=== PATIENT | male | born 1970 | race Caucasian/White ===

== ENCOUNTER → 2018-02-11 | Outpatient (CLI) | payer BC | LOC: COL.RAD 14:00 | DX: C30.0 Malignant neoplasm of nasal cavity (principal) | CPT/HCPCS: Q9967 ==

== ENCOUNTER → 2018-02-12 | Outpatient (CLI) | payer BC | LOC: COL.VAS 12:30 | DX: Z51.11 Encounter for antineoplastic chemotherapy (principal); C41.9 Malignant neoplasm of bone and articular cartilage, unspecified ==

== ENCOUNTER → 2018-04-22 | Outpatient (CLI) | payer BC | LOC: COL.VAS 13:30 | DX: Z51.11 Encounter for antineoplastic chemotherapy (principal); C41.9 Malignant neoplasm of bone and articular cartilage, unspecified ==

== ENCOUNTER 2018-05-03 15:29 | Outpatient (RCR) | payer BC ==
[2018-05-03] VITALS (9 sets, daily range): BP systolic 116–123; BP diastolic 66–84; PULSE 70–96; TEMP 97.7–98.4
[~2018-05-03] VITALS: Ht 172.7 cm; Wt 71.5 kg
[2018-05-03] MEDS ORDERED: MULTI VITAMINS1 TAB PO (19:26)
[2018-05-03] MEDS ORDERED: NEURONTIN300 MG/CAP PO (19:26)
== END 2018-05-03 20:50 | disposition home or self-care (01) ==
LOC: EUO 15:29
DX: C41.0 Malignant neoplasm of bones of skull and face (principal)
CPT/HCPCS: J1644; J7050; P9016

== ENCOUNTER 2018-05-14 16:54 | Outpatient (RCR) | payer BC ==
[~2018-05-14] VITALS: Ht 172.7 cm; Wt 68.5 kg
[2018-05-14] VITALS (10 sets, daily range): BP systolic 108–133; BP diastolic 52–85; PULSE 60–78; TEMP 98.3–99.3
[~2018-05-14 16:54] MED LIST: MULTI VITAMINS1 TAB PO; NEURONTIN300 MG/CAP PO
--- NOTE | 2018-05-14 23:57 | NUR ---
Transfusion finished, and IV line flushed. Patient VS stable and no complaints reported. Patient left facility independently.
== END 2018-05-15 | disposition home or self-care (01) ==
LOC: EUO 16:54
DX: C41.0 Malignant neoplasm of bones of skull and face (principal)
CPT/HCPCS: J7050; P9040

== ENCOUNTER 2018-05-17 23:16 | Emergency (ER) | payer BC ==
[~2018-05-17] VITALS: Ht 172.7 cm; Wt 68.2 kg
[2018-05-17] MEDS ORDERED: COMPAZINE 110 MG/TAB PO (23:30)
[2018-05-17 23:42] LABS: MEAN CELL VOLUME 84 fl (80.0-100.0); MEAN CORPUSCULAR HGB CONC 36 g/dl (33.0-37.0); RED BLOOD COUNT 2.82 M/mm3 (4.20-5.60)
[2018-05-18] VITALS (8 sets, daily range): BP systolic 115–122; BP diastolic 76–86; PULSE 65–94; TEMP 96.7–97.2
[2018-05-18 00:09] LABS: HEMATOCRIT 23.7 % (42.0-52.0); HEMOGLOBIN 8.6 g/dl (13.5-18.0); MEAN CORPUSCULAR HEMOGLOBIN 30 pg (27.0-31.0)
[2018-05-18 00:10] LABS: PLATELET COUNT 2 K/mm3 (130-400)
[2018-05-18 00:23] LABS: BAND 14 % (0-10); BASOPHIL 1 % (0-2); LYMPHOCYTE 66 % (20.0-51.0); METAMYELOCYTE 2 % (0-0); NEUTROPHILS 12 % (42.0-75.2); PLATELET ESTIMATE DECREASED (NORMAL); SCHISTOCYTES 2+; TEAR DROP CELLS 2+
[2018-05-18 05:14] LABS: MEAN CELL VOLUME 85 fl (80.0-100.0); MEAN CORPUSCULAR HGB CONC 36 g/dl (33.0-37.0); MEAN PLATELET VOLUME 10.5 fl (7.4-10.4)
[2018-05-18 05:24] LABS: HEMATOCRIT 21.2 % (42.0-52.0); HEMOGLOBIN 7.7 g/dl (13.5-18.0); MEAN CORPUSCULAR HEMOGLOBIN 31 pg (27.0-31.0)
[2018-05-18 05:25] LABS: PLATELET COUNT 37 K/mm3 (130-400)
[2018-05-18 06:11] LABS: BAND 6 % (0-10); EOSINOPHIL 1 % (0-4); LYMPHOCYTE 43 % (20.0-51.0); NEUTROPHILS 43 % (42.0-75.2); PLATELET ESTIMATE DECREASED (NORMAL)
[2018-05-18 06:12] LABS: ANISOCYTOSIS 2+; HYPOCHROMIA 1+; POIKILOCYTOSIS 1+; TEAR DROP CELLS 1+
[2018-05-18 06:25] LABS: INR 1.1 (0.8-3.0); PROTHROMBIN TIME 12.7 SECONDS (9.7-12.8)
[2018-05-18 06:28] LABS: ALBUMIN 4.4 gm/dL (3.5-5.0); BILIRUBIN,TOTAL 0.6 mg/dL (0.0-1.0); CALCIUM 10.1 mg/dL (8.4-10.2); CREATININE, serum 0.8 mg/dL (0.66-1.25); PARTIAL THROMBOPLASTIN TIME 35.6 SECONDS (26.0-37.0); POTASSIUM 4.4 mmol/L (3.4-5.0); TOTAL PROTEIN 7.2 gm/dL (6.4-8.2)
[2018-05-18 10:16] LABS: PATHOLOGY DIFF REVIEW OK +
[2018-05-18 12:37] LABS: MEAN CELL VOLUME 85 fl (80.0-100.0); MEAN CORPUSCULAR HGB CONC 36 g/dl (33.0-37.0); MEAN PLATELET VOLUME 10.5 fl (7.4-10.4); RED BLOOD COUNT 2.81 M/mm3 (4.20-5.60); REDCELL DISTRIBUTION WIDTH-CV 14.9 % (11.5-14.5)
[2018-05-18 12:41] LABS: HEMATOCRIT 23.9 % (42.0-52.0); HEMOGLOBIN 8.7 g/dl (13.5-18.0); MEAN CORPUSCULAR HEMOGLOBIN 31 pg (27.0-31.0)
[2018-05-18 12:43] LABS: PLATELET COUNT 45 K/mm3 (130-400)
[2018-05-18 13:04] LABS: BAND 28 % (0-10); EOSINOPHIL 1 % (0-4); LYMPHOCYTE 37 % (20.0-51.0); NEUTROPHILS 29 % (42.0-75.2); PLATELET ESTIMATE DECREASED (NORMAL)
== END 2018-05-18 12:45 | disposition short-term general hospital (02) ==
LOC: COL.ER 23:16
PROVIDERS: Emergency Medicine
DX: R04.0 Epistaxis (principal); D69.6 Thrombocytopenia, unspecified; D64.9 Anemia, unspecified; C41.9 Malignant neoplasm of bone and articular cartilage, unspecified
CPT/HCPCS: P9037

== ENCOUNTER 2018-05-22 12:58 | Emergency (ER) | payer BC ==
[~2018-05-22] VITALS: Ht 172.7 cm; Wt 65.9 kg
[~2018-05-22 12:58] MED LIST changes: +COMPAZINE 110 MG/TAB PO
[2018-05-22 13:15] VITALS: BP 108/68; TEMP 97.7
[2018-05-22 15:29] VITALS: PULSE 87
== END 2018-05-22 15:38 | disposition home or self-care (01) ==
LOC: COL.ER 12:58
DX: S02.82XA Fracture of other specified skull and facial bones, left side, initial encounter for closed fracture (principal); S01.112A Laceration without foreign body of left eyelid and periocular area, initial encounter; Z23 Encounter for immunization; W22.8XXA Striking against or struck by other objects, initial encounter; Y93.64 Activity, baseball

== ENCOUNTER 2018-06-02 13:00 | Outpatient (RCR) | payer BC ==
[2018-06-02] VITALS (10 sets, daily range): BP systolic 12–124; BP diastolic 66–83; PULSE 60–77; TEMP 98.2–98.8
[~2018-06-02] VITALS: Ht 172.7 cm; Wt 68.1 kg
== END 2018-06-02 17:37 | disposition home or self-care (01) ==
LOC: EUO 13:00
DX: C41.0 Malignant neoplasm of bones of skull and face (principal)
CPT/HCPCS: J1644; J7050; P9040

== ENCOUNTER 2018-06-09 13:00 | Outpatient (RCR) | payer BC ==
[~2018-06-09] VITALS: Ht 172.7 cm; Wt 64.5 kg
[2018-06-09] VITALS (12 sets, daily range): BP systolic 112–130; BP diastolic 73–93; PULSE 55–78; TEMP 97.9–98.2
--- NOTE | 2018-06-09 14:05 | NUR ---
1st unit PRBC's started at 60 ml/hr. VSS.
--- NOTE | 2018-06-09 15:37 | NUR ---
1st unir Irr. PRBC's complete. VSS.
--- NOTE | 2018-06-09 15:38 | NUR ---
2nd unit Irr. PRBC;s started at 60 ml/hr. VSS.
--- NOTE | 2018-06-09 16:30 | NUR ---
Report received from Eli Rodriguez.
[2018-06-10 08:34] LABS: HEMATOCRIT 24.2 % (42.0-52.0); HEMOGLOBIN 8.5 g/dl (13.5-18.0); MEAN CELL VOLUME 88 fl (80.0-100.0); MEAN CORPUSCULAR HEMOGLOBIN 31 pg (27.0-31.0); MEAN CORPUSCULAR HGB CONC 35 g/dl (33.0-37.0); MEAN PLATELET VOLUME 9.7 fl (7.4-10.4); RED BLOOD COUNT 2.76 M/mm3 (4.20-5.60); REDCELL DISTRIBUTION WIDTH-CV 15.1 % (11.5-14.5)
[2018-06-10 08:36] LABS: PLATELET COUNT 45 K/mm3 (130-400)
[2018-06-10 08:43] LABS: BAND 26 % (0-10); BASOPHIL 2 % (0-2); BURR CELLS 2+; LYMPHOCYTE 28 % (20.0-51.0); MYELOCYTE 1 % (0-0); NEUTROPHILS 41 % (42.0-75.2); PLATELET ESTIMATE DECREASED (NORMAL); TEAR DROP CELLS 2+
[2018-06-10 08:44] LABS: ANISOCYTOSIS 1+
== END 2018-06-09 18:24 | disposition home or self-care (01) ==
LOC: EUO 13:00
PROVIDERS: Internal Medicine Medical Oncology
DX: C41.0 Malignant neoplasm of bones of skull and face (principal)
CPT/HCPCS: J1644; J7050; P9037; P9040

== ENCOUNTER 2019-08-05 14:00 | Outpatient (RCR) | payer BC ==
[2019-08-04] VITALS (9 sets, daily range): BP systolic 104–114; BP diastolic 33–69; PULSE 61–84; TEMP 98.2–98.6
[2019-08-04 16:51] LABS: MEAN CELL VOLUME 100 fl (80.0-100.0); MEAN CORPUSCULAR HGB CONC 34 g/dl (33.0-37.0); MEAN PLATELET VOLUME 11.7 fl (7.4-10.4); REDCELL DISTRIBUTION WIDTH-CV 14.8 % (11.5-14.5)
--- NOTE | 2019-08-04 16:55 | NUR ---
Pt tolerated transfusion well, cbc was drawn by lab after transfusion was complete. Pt ambulatory to exit at time of departure with no problem. port was dc's after flushing with 2 NS flushes and a heparin flush.
[2019-08-04 16:58] LABS: HEMOGLOBIN 7.5 g/dl (13.5-18.0); MEAN CORPUSCULAR HEMOGLOBIN 34 pg (27.0-31.0); PLATELET COUNT 15 K/mm3 (130-400)
[2019-08-04 17:57] LABS: LYMPHOCYTE 84 % (20.0-51.0); NEUTROPHILS 12 % (42.0-75.2); PLATELET ESTIMATE DECREASED (NORMAL)
[2019-08-05] VITALS (9 sets, daily range): BP systolic 95–113; BP diastolic 51–64; PULSE 57–78; TEMP 98–98.2
[~2019-08-05] VITALS: Ht 172.7 cm; Wt 71.8 kg
--- NOTE | 2019-08-05 11:28 | NUR ---
Blood Bank called for product availability - per blood bank staff: [place] Shipment is just about to arrive. Call back number provided Pt in EU room since [id number].
[~2019-08-05 14:00] MED LIST changes: +AMBIEN 5MG TABLE5 MG PO
[2019-08-05 15:23] LABS: MEAN CELL VOLUME 99 fl (80.0-100.0); MEAN CORPUSCULAR HGB CONC 35 g/dl (33.0-37.0); MEAN PLATELET VOLUME 9.3 fl (7.4-10.4); PLATELET COUNT 51 K/mm3 (130-400); RED BLOOD COUNT 2.22 M/mm3 (4.20-5.60)
[2019-08-05 15:35] LABS: HEMATOCRIT 21.9 % (42.0-52.0); HEMOGLOBIN 7.7 g/dl (13.5-18.0); MEAN CORPUSCULAR HEMOGLOBIN 35 pg (27.0-31.0)
[2019-08-05 18:02] LABS: BAND 6 % (0-10); EOSINOPHIL 2 % (0-4); LYMPHOCYTE 52 % (20.0-51.0); MYELOCYTE 6 % (0-0); NEUTROPHILS 12 % (42.0-75.2); PLATELET ESTIMATE DECREASED (NORMAL); TEAR DROP CELLS 1+
[2019-08-05 18:03] LABS: ANISOCYTOSIS 1+; HYPOCHROMIA 1+; POIKILOCYTOSIS 1+
[2019-08-08 12:11] LABS: PATHOLOGY DIFF REVIEW OK +
== END 2019-08-05 15:40 | disposition home or self-care (01) ==
LOC: EUO 14:00
PROVIDERS: Internal Medicine Medical Oncology
DX: C41.0 Malignant neoplasm of bones of skull and face (principal)
CPT/HCPCS: J1644; J7050; P9037; P9040

== ENCOUNTER 2019-09-01 13:00 | Outpatient (RCR) | payer BC ==
[~2019-09-01] VITALS: Ht 172.7 cm; Wt 71.8 kg
[2019-09-01] VITALS (7 sets, daily range): BP systolic 92–112; BP diastolic 55–73; PULSE 69–81; TEMP 98.2–98.5
== END 2019-09-01 16:51 | disposition home or self-care (01) ==
LOC: EUO 13:00
DX: C41.0 Malignant neoplasm of bones of skull and face (principal)
CPT/HCPCS: J1644; J7050; P9037

== ENCOUNTER → 2020-07-25 | Outpatient (CLI) | payer BC | LOC: COL.RAD 10:39 | DX: C41.0 Malignant neoplasm of bones of skull and face (principal) | CPT/HCPCS: A9585; Q9967 ==

== ENCOUNTER → 2021-07-02 | Outpatient (CLI) | payer BC | LOC: COL.RAD 11:36 | DX: C41.0 Malignant neoplasm of bones of skull and face (principal) | CPT/HCPCS: Q9967 ==

== ENCOUNTER → 2022-05-27 | Outpatient (REF) | payer BC | LOC: ZCOL.LAB 17:34 | DX: J32.2 Chronic ethmoidal sinusitis (principal) ==

== ENCOUNTER → 2023-04-02 | Outpatient (REF) | payer BC | LOC: ZCOL.LAB 17:41 | DX: J32.3 Chronic sphenoidal sinusitis (principal) ==